=== PATIENT | female | born 1980 | race Caucasian/White ===

== ENCOUNTER 2020-07-17 13:25 | Inpatient (IN) | payer OTHER ==
[~2020-07-17] VITALS: Ht 160 cm; Wt 95.3 kg
[~2020-07-17 13:25] MED LIST: COLACE 100MG C100 MG PO; EFFEXOR XR150 MG PO; IBUPROFEN600 MG PO; KLONOPIN2 MG PO; PRENATAL VITAM1 EAC5 PO
[2020-07-17 17:02] LABS: RED BLOOD COUNT 4.15 M/UL (4.00-5.10)
[2020-07-17] MEDS ORDERED: EFFEXOR XR 150150 MG PO (17:06)
[2020-07-17] MEDS ORDERED: CLONAZEPAM1 MG PO (17:06)
[2020-07-17] MEDS ORDERED: PRENATAL VITAM1 EAC5 PO (17:07)
[2020-07-17] MEDS ORDERED: PROAIR HFA8.5 GM INH (17:09)
[2020-07-17] MEDS ORDERED: CLARITIN10 M2 PO (17:10)
[2020-07-17] MEDS ORDERED: IBUPROFEN600 MG PO (22:05)
[2020-07-17] MEDS ORDERED: DOCUSATE SODIU250 MG PO (22:05)
[2020-07-18 01:33] LABS: HEMOGLOBIN 10.7 gm/dl (12.3-15.3)
== END 2020-07-19 16:00 | disposition home or self-care (01) | DRG 807 ==
LOC: GENOP 13:25 → OB 16:21
PROVIDERS: Obstetrics & Gynecology; ADMIT Obstetrics & Gynecology
PROC: 10E0XZZ Delivery of Products of Conception, External Approach (ICD-10-PCS; principal; 2020-07-17)
PROC: 10907ZC Drainage of Amniotic Fluid, Therapeutic from Products of Conception, Via Natural or Artificial Opening (ICD-10-PCS; 2020-07-17)
PROC: 4A1HXCZ Monitoring of Products of Conception, Cardiac Rate, External Approach (ICD-10-PCS; 2020-07-17)
DX: O99.344 Other mental disorders complicating childbirth (principal); Z37.0 Single live birth; F41.9 Anxiety disorder, unspecified; F32.9 Major depressive disorder, single episode, unspecified; Z3A.36 36 weeks gestation of pregnancy; Z20.822 Contact with and (suspected) exposure to COVID-19; O99.334 Smoking (tobacco) complicating childbirth; O76 Abnormality in fetal heart rate and rhythm complicating labor and delivery; O99.62 Diseases of the digestive system complicating childbirth; K21.9 Gastro-esophageal reflux disease without esophagitis
CPT/HCPCS: 36415; 51702; 80307; 81001; 82800; 85014; 85018; 85025; J0595; J2590; J7120; U0002

== ENCOUNTER 2020-09-16 20:05 | Emergency (ER) | payer OTHER ==
[~2020-09-16 20:05] MED LIST changes: +CLARITIN10 M2 PO; +CLONAZEPAM1 MG PO; +DOCUSATE SODIU250 MG PO; +EFFEXOR XR 150150 MG PO; +PROAIR HFA8.5 GM INH
[2020-09-16] MEDS ORDERED: CORTISPORIN OTI10 ML EARLF (22:08)
[2020-09-16] MEDS ORDERED: AUGMENTIN 875-1 EACH PO (22:08)
== END 2020-09-16 22:27 | disposition home or self-care (01) ==
LOC: ER1 20:05
DX: H66.92 Otitis media, unspecified, left ear (principal); H60.93 Unspecified otitis externa, bilateral
CPT/HCPCS: 99282

== ENCOUNTER 2020-10-05 20:06 | Emergency (ER) | payer OTHER ==
[~2020-10-05 20:06] MED LIST changes: +AUGMENTIN 875-1 EACH PO; +CORTISPORIN OTI10 ML EARLF
[2020-10-05] MEDS ORDERED: CORTISPORIN OTI10 ML EARLF (21:42)
== END 2020-10-05 21:47 | disposition home or self-care (01) ==
LOC: ER1 20:06
DX: H60.92 Unspecified otitis externa, left ear (principal); F17.210 Nicotine dependence, cigarettes, uncomplicated
CPT/HCPCS: 99282

== ENCOUNTER 2021-10-05 16:15 | Emergency (ER) | payer OTHER ==
[2021-10-05 17:01] LABS: HEMOGLOBIN 14.9 gm/dl (12.3-15.3); RED BLOOD COUNT 5.02 M/UL (4.00-5.10)
[2021-10-05 17:25] LABS: BUN/CREATININE RATIO 12 (0-10)
== END 2021-10-05 19:32 | disposition home or self-care (01) ==
LOC: ER1 16:15
PROVIDERS: Physician Assistant Medical
DX: U07.1 COVID-19 (principal); F17.210 Nicotine dependence, cigarettes, uncomplicated
CPT/HCPCS: 0240U; 71045; 80053; 83605; 85025; 87040; 96374; 99284; J1885